=== PATIENT | female | born 1990 | race Caucasian/White ===

== ENCOUNTER 2017-02-16 10:15 | Emergency (ER) | payer MEDICAID ==
[2017-02-16 10:16] VITALS: BMI 30.8
--- NOTE | 2017-02-16 10:55 | ED PDOC ---
HPI: Abdomen Time Seen by Provider: 02/16/17 10:28 Chief Complaint (Nursing): Abdominal Pain Chief Complaint (Provider): Pelvic cramping, spotting History Per: Patient History/Exam Limitations: no limitations Onset/Duration Of Symptoms: Days Current Symptoms Are (Timing): Still Present Location Of Pain/Discomfort: Suprapubic Quality Of Discomfort: Cramping Associated Symptoms: Nausea, Loss Of Appetite. denies: Fever, Chills, Vomiting Exacerbating Factors: None Additional Complaint(s): Pt with one previous . Pt reports LMP 01/22/17. No test at home. PT reports cramping x 3 days. Pt states her menses was 2 days long and she had light bleeding last week. Pain cramping and central. Pt smokes. Past Medical History Reviewed: Historical Data, Nursing Documentation, Vital Signs Vital Signs: Last Vital Signs Temp 98.9 F 02/16/17 10:37 Pulse 75 02/16/17 10:37 Resp 16 02/16/17 10:37 BP 112/63 02/16/17 10:37 Pulse Ox 99 02/16/17 10:57 - Medical History PMH: Asthma - Surgical History Surgical History: No Surg Hx - Family History Family History: States: Unknown Family Hx - Living Arrangements Living Arrangements: With Family - Social History Current smoker - smoking cessation education provided: Yes Alcohol: Occasional - Immunization History Hx Tetanus Toxoid Vaccination: No Hx Influenza Vaccination: No Hx Pneumococcal Vaccination: No - Home Medications Home Medications: Ambulatory Orders Medication Instructions Recorded Naproxen [Naprosyn] 1 tab PO BID PRN #25 tab 08/31/15 - Allergies Allergies/Adverse Reactions: Allergies Allergy/AdvReac Type Severity Reaction Status Date / Time No Known Allergies Allergy Verified 08/31/15 13:40 Review of Systems ROS Statement: Except As Marked, All Systems Reviewed And Found Negative Constitutional: Negative for: Fever, Chills Cardiovascular: Negative for: Chest Pain Respiratory: Negative for: Cough, Shortness of Breath Gastrointestinal: Positive for: Nausea, Abdominal Pain Physical Exam - Reviewed Nursing Documentation Reviewed: Yes Vital Signs Reviewed: Yes - Physical Exam Appears: Positive for: Well, Non-toxic, No Acute Distress Head Exam: Positive for: ATRAUMATIC, NORMAL INSPECTION, NORMOCEPHALIC Skin: Positive for: Normal Color, Warm, DRY Eye Exam: Positive for: Normal appearance ENT: Positive for: Normal ENT Inspection Neck: Positive for: Normal, Painless ROM Cardiovascular/Chest: Positive for: Regular Rate, Rhythm Respiratory: Positive for: Normal Breath Sounds. Negative for: Accessory Muscle Use, Respiratory Distress Gastrointestinal/Abdominal: Positive for: Normal Exam, Bowel Sounds, Soft. Negative for: Tenderness Back: Positive for: Normal Inspection Extremity: Positive for: Normal ROM Neurologic/Psych: Positive for: Alert, Oriented - Laboratory Results Result Diagrams: 02/16/17 11:06 02/16/17 11:00 - ECG O2 Sat by Pulse Oximetry: 99 Medical Decision Making Medical Decision Making: (+) . Labs and US ordered. No IUP confirmed on US. Discussed f/u in 2-3 days for repeat beta-hCg Disposition - Clinical Impression Clinical Impression: - Patient ED Disposition Is Patient to be Admitted: No - Disposition Referrals: [facility] [Outside] Disposition: Routine/Home Disposition Time: 10:55 Condition: GOOD Additional Instructions: Follow-up with [facility] for repeat labs in 2-3 days Instructions: How to Stop Smoking (ED), Secondhand Smoke Exposure in Children ( ED)
[2017-02-16] MEDS ORDERED: Lactated Ringer's 1,000 ML IV SCH (11:00)
[2017-02-16 11:23] LABS: BASO % 0.7 % (0.0-2.0); EOS # 0.1 K/uL (0.0-0.7); EOS % 1.1 % (0.0-4.0); HEMATOCRIT 37.1 % (34.0-47.0); LYMPH # 1.8 K/uL (1.0-4.3); LYMPH % 27.6 % (20.0-40.0); MEAN CELL VOLUME 84.5 fl (81.0-99.0); MEAN CORPUSCULAR HEMOGLOBIN 27.4 pg (27.0-31.0); MEAN CORPUSCULAR HGB CONC 32.4 g/dL (33.0-37.0); MEAN PLATELET VOLUME 9.5 fl (7.2-11.7); MONO # 0.4 K/uL (0.0-0.8); MONO % 6.1 % (0.0-10.0); NEUT # 4.3 K/uL (1.8-7.0); NEUT % 64.5 % (50.0-75.0); NRBC % 0.1 % (0.0-0.0); WHITE BLOOD COUNT 6.7 K/uL (4.8-10.8)
[2017-02-16 11:40] LABS: ALB/GLOB RATIO 1.4 (1.0-2.1); ALKALINE PHOSPHATASE 42 U/L (38-126); ALT/SGPT 30 U/L (9-52); AST/SGOT 23 U/L (14-36); BILIRUBIN,TOTAL 0.5 mg/dl (0.2-1.3); BLOOD UREA NITROGEN 12 mg/dl (7-17); CALCIUM 9.6 mg/dL (8.4-10.2); CARBON DIOXIDE 27 mmol/L (22-30); CHLORIDE 103 mmol/L (98-107); GFR AFRICAN-AMERICAN > 60; GLUCOSE,RANDOM 67 mg/dL (65-105); POTASSIUM 4.1 MMOL/L (3.6-5.0); SODIUM 139 mmol/l (132-148); TOTAL PROTEIN 7.7 G/DL (6.3-8.2)
[2017-02-16 14:21] VITALS: BP 116/75; PULSE 77; RESP 14; TEMP 97.9; O2SAT 100
--- NOTE | 2017-02-16 15:00 | US ---
HISTORY: Pelvic pain. Spotting x4 weeks COMPARISON: No prior study available comparison TECHNIQUE: Transabdominal transvaginal sonographic evaluation of the pelvis performed. FINDINGS: The uterus is anteverted measuring approximately 6.7 x 4.7 x 4.4 cm. Cervix is closed measuring 3.6 cm. There is a very tiny on anechoic focus within the endometrium that measures 3.6 on mm that is nonspecific however could represent an early gestational sac. No yolk sac pole on delineated. There is free fluid seen in the pelvis. Left ovary measures 3.7 x 3.8 x 2.4 cm. There appears to be a complex cystic structure in the left adnexal of that measures approximately 1.5 x 1.3 x 1.2 cm and exhibits a peripheral rim of increased on blood flow (questionable ring of fire sign). There is also a more simple appearing cyst adjacent measuring 1.6 x 2.1 x 1.9 cm. Free fluid is also present. Ectopic must be considered until proven otherwise. Note that these findings were discussed with ER HARSH Self at approximately 2:40 p.m. with written down and read back verification. Right ovary measures 2.5 x 2.2 x 1.1 cm. Impression: Findings suggestive of left ectopic . Clinical correlation recommended. Emergency room staff aware.
== END 2017-02-16 14:20 | disposition home or self-care (01) ==
LOC: H.ER 10:15
DX: O26.891 Other specified pregnancy related conditions, first trimester (principal)
CPT/HCPCS: 76817; 80053; 81025; 84702; 85025; 86850; 86900; 99284; J7120

== ENCOUNTER 2017-03-09 13:12 | Emergency (ER) | payer MEDICAID ==
[2017-03-09 13:12] VITALS: BMI 30.8
[2017-03-09 13:20] VITALS: BP 112/64; PULSE 78; RESP 18; TEMP 97.7; O2SAT 84
--- NOTE | 2017-03-09 13:45 | ED PDOC ---
HPI: Female Pain Time Seen by Provider: 03/09/17 13:25 Chief Complaint (Nursing): Abdominal Pain History Per: Patient Onset/Duration Of Symptoms: Days (2) Current Symptoms Are (Timing): Intermittent Episodes Severity: Mild Pain Scale Rating Of: 1 Quality Of Discomfort: Cramping Additional Complaint(s): Lower abd cramping assoc with vaginal spotting x 2 days Abnormal Vaginal Bleeding: Yes Past Medical History Vital Signs: Last Vital Signs Temp 97.7 F 03/09/17 13:15 Pulse 78 03/09/17 13:15 Resp 18 03/09/17 13:15 BP 112/64 03/09/17 13:15 Pulse Ox 84 L 03/09/17 13:15 - Medical History PMH: Asthma - Family History Family History: States: Unknown Family Hx - Immunization History Hx Tetanus Toxoid Vaccination: No Hx Influenza Vaccination: No Hx Pneumococcal Vaccination: No - Home Medications Home Medications: Ambulatory Orders Medication Instructions Recorded Naproxen [Naprosyn] 1 tab PO BID PRN #25 tab 08/31/15 - Allergies Allergies/Adverse Reactions: Allergies Allergy/AdvReac Type Severity Reaction Status Date / Time No Known Allergies Allergy Verified 08/31/15 13:40 Review of Systems Constitutional: Negative for: Fever Gastrointestinal: Positive for: Abdominal Pain Genitourinary Female: Positive for: Vaginal Bleeding Musculoskeletal: Positive for: Back Pain Physical Exam - Physical Exam Appears: Positive for: Non-toxic, No Acute Distress Skin: Positive for: Normal Color, Warm, DRY Gastrointestinal/Abdominal: Positive for: Bowel Sounds, Soft. Negative for: Tenderness Pelvic Exam: Positive for: External Exam Normal. Negative for: Active Bleeding , Mass, Tender Adnexa, Tender Uterus - Laboratory Results Result Diagrams: 03/09/17 13:48 - ECG O2 Sat by Pulse Oximetry: 84 Disposition - Clinical Impression Clinical Impression: Threatened miscarriage - Patient ED Disposition Is Patient to be Admitted: No Counseled Patient/Family Regarding: Studies Performed, Diagnosis, Need For Followup, Rx Given - Disposition Referrals: [facility] [Outside] Disposition: Routine/Home Disposition Time: 15:31 Condition: FAIR Instructions: Threatened Miscarriage (ED) Forms: [employer] (Colombian)
[2017-03-09 14:02] LABS: BASO % 0.4 % (0.0-2.0); EOS # 0.1 K/uL (0.0-0.7); EOS % 0.7 % (0.0-4.0); HEMATOCRIT 36.3 % (34.0-47.0); LYMPH # 1.7 K/uL (1.0-4.3); LYMPH % 20.2 % (20.0-40.0); MEAN CELL VOLUME 83.8 fl (81.0-99.0); MEAN CORPUSCULAR HEMOGLOBIN 27.1 pg (27.0-31.0); MEAN CORPUSCULAR HGB CONC 32.4 g/dL (33.0-37.0); MEAN PLATELET VOLUME 9.7 fl (7.2-11.7); MONO # 0.4 K/uL (0.0-0.8); MONO % 5.3 % (0.0-10.0); NEUT # 6.2 K/uL (1.8-7.0); NEUT % 73.4 % (50.0-75.0); NRBC % 0.1 % (0.0-0.0); RED CELL DISTRIBUTION WIDTH 13.7 % (11.5-14.5); WHITE BLOOD COUNT 8.4 K/uL (4.8-10.8)
--- NOTE | 2017-03-09 15:59 | US ---
HISTORY: r/o ectopic COMPARISON: 02/16/2017. TECHNIQUE: Standard protocol for this study/examination. FINDINGS: LMP: 01/17/2017 Prior examinations from the current : 02/16/2017 TECHNIQUE: Real-time 2D imaging, duplex and color Doppler. FINDINGS: Cardiac activity: Present Rate: 144 BPM Measurements: Arpin rump length: 1.41 cm Gestational age based on CRL 7 weeks 5 days Gestational age based on gestational sac measurement 7 weeks 5 days Gestational age derived from LMP: 7 weeks 2 days GILMER based on LMP: 10/24/2017. GILMER based on biometry: 10/21/2017. Gestational concordance documented Yolk sac identified Uterus: Unremarkable. No Cervical abnormalities: Negative examination for cervical dilatation or effacement. Subchorionic hemorrhage: None ADNEXA: Right: 1.6 x 1.9 x 2.4 cm. Normal Doppler arterial waveform documented. Left: 2.6 x 2.8 x 3.6 cm. Simple cyst 2.5 x 2.8 cm Normal Doppler arterial waveform documented Fluid in the cul-de-sac: OTHER FINDINGS: None. IMPRESSION: Seven weeks 5 days live intrauterine gestation. Gestational concordance documented.
== END 2017-03-09 16:07 | disposition home or self-care (01) ==
LOC: H.ER 13:12
DX: O20.0 Threatened abortion (principal)

== ENCOUNTER 2017-04-18 12:02 | Emergency (ER) | payer MEDICAID ==
[2017-04-18 12:03] VITALS: BMI 30.8
[2017-04-18 12:22] VITALS: BP 121/59; PULSE 71; RESP 16; TEMP 99; O2SAT 100
--- NOTE | 2017-04-18 12:32 | ED PDOC ---
HPI: General Adult Time Seen by Provider: 04/18/17 12:31 Chief Complaint (Nursing): Abdominal Pain Chief Complaint (Provider): abd pain History Per: Patient Additional Complaint(s): 27 year old female presents to emergency department for evaluation of abdominal cramping and headache ongoing for 2 months. Patient is but she is not sure how far along she is. Her last period was 01/17/2017. Patient has been getting intermittent headaches for the past couple of months that are relieved by Tylenol. Patient has not no care up to this point. She denies vaginal bleeding, denies fever or chills. No nausea or vomiting. Past Medical History Reviewed: Historical Data, Nursing Documentation, Vital Signs Vital Signs: Last Vital Signs Temp 99.0 F 04/18/17 12:18 Pulse 71 04/18/17 12:18 Resp 16 04/18/17 12:18 BP 121/59 L 04/18/17 12:18 Pulse Ox 100 04/18/17 13:33 - Medical History PMH: Asthma Other PMH: - Surgical History Surgical History: (x 1) - Family History Family History: States: No Known Family Hx - Living Arrangements Living Arrangements: With Family - Social History Current smoker - smoking cessation education provided: No Alcohol: None Drugs: Denies - Home Medications Home Medications: Ambulatory Orders Medication Instructions Recorded Naproxen [Naprosyn] 1 tab PO BID PRN #25 tab 08/31/15 - Allergies Allergies/Adverse Reactions: Allergies Allergy/AdvReac Type Severity Reaction Status Date / Time No Known Allergies Allergy Verified 08/31/15 13:40 Review of Systems ROS Statement: Except As Marked, All Systems Reviewed And Found Negative Gastrointestinal: Positive for: Abdominal Pain. Negative for: Nausea, Vomiting , Diarrhea, Constipation Genitourinary Female: Negative for: Dysuria, Frequency, Incontinence, Vaginal Discharge, Vaginal Bleeding Neurological: Positive for: Headache. Negative for: Dizziness Physical Exam - Reviewed Nursing Documentation Reviewed: Yes Vital Signs Reviewed: Yes - Physical Exam Appears: Positive for: Well, Non-toxic, No Acute Distress Skin: Negative for: Rash Eye Exam: Positive for: Normal appearance Cardiovascular/Chest: Positive for: Regular Rate, Rhythm Respiratory: Positive for: Normal Breath Sounds Gastrointestinal/Abdominal: Positive for: Other (Gravid nontender abdomen) Back: Negative for: L CVA Tenderness, R CVA Tenderness Extremity: Negative for: Pedal Edema Neurologic/Psych: Positive for: Alert, Oriented - Laboratory Results Result Diagrams: 04/18/17 13:07 04/18/17 13:07 Urine POC: Positive Urine dip results: Negative for: Leukocyte Esterase, Blood, Nitrate, Ketones, Glucose, Bilirubin, Protein - ECG O2 Sat by Pulse Oximetry: 100 Pulse Ox Interpretation: Normal - Other Rad OB US X-Ray: Read By Radiologist X-Ray Interpretation: see below Medical Decision Making Medical Decision Makin27 year old female with abdominal pain and headache. Plan: CBC CMP Beta quant Urine dip and test OB US UA PO tylenol IVF US: IMPRESSION: Single live intrauterine gestation of approximately 13 weeks 2 days gestational age. No gross abnormality identified. Cervix closed. Patient is aware of all diagnostic testing results, all questions answered. Prescription given for vitamins. Patient was instructed to drink plenty of fluids and continue Tylenol as needed for pain. She was referred to women's clinic for follow-up. Patient states that headache is now resolved after Tylenol dose given in ED. Disposition - Clinical Impression Clinical Impression: Abdominal pain during , Headache - Patient ED Disposition Is Patient to be Admitted: No Counseled Patient/Family Regarding: Studies Performed, Diagnosis, Need For Followup, Rx Given - Disposition Referrals: [facility] [Outside] Disposition: Routine/Home Disposition Time: 14:18 Condition: STABLE Additional Instructions: Take vitamins as directed. Tylenol as needed for headache. Plenty of fluids. Follow-up with women's clinic. Instructions: Abdominal Pain in (ED), General Headache (ED) Forms: [employer] (B[place]raini) Results - Lab Results Lab Results: 04/18/17 04/18/17 04/18/17 13:07 13:07 13:07 WBC 7.0 RBC 3.83 Hgb 10.5 L Hct 32.7 L MCV 85.2 MCH 27.5 MCHC 32.3 L RDW 14.6 H Plt Count 182 MPV 9.2 Neut % (Auto) 68.8 Lymph % (Auto) 23.2 [place] % (Auto) 5.5 Eos % (Auto) 1.9 Baso % (Auto) 0.6 Neut # 4.8 Lymph # 1.6 [place] # 0.4 Eos # 0.1 Baso # 0.0 Sodium 139 Potassium 3.9 Chloride 105 Carbon Dioxide 24 Anion Gap 14 BUN 8 Creatinine 0.6 L Est GFR ( Amer) > 60 Est GFR (Non-Af Amer) > 60 Random Glucose 73 Calcium 9.2 Total Bilirubin 0.1 L AST 19 ALT 21 Alkaline Phosphatase 38 Total Protein 7.4 Albumin 4.1 Globulin 3.3 Albumin/Globulin Ratio 1.3 Beta HCG, Quant Pending Urine Color Yellow Urine Clarity Clear Urine pH 6.0 Ur Specific [place] 1.017 Urine Protein Negative Urine Glucose (UA) Neg Urine Ketones Negative Urine Blood Negative Urine Nitrate Negative Urine Bilirubin Negative Urine Urobilinogen 0.2-1.0 Ur Leukocyte Esterase Neg Urine RBC (Auto) 1 Urine Microscopic WBC 1 Ur Squamous Epith Cells 2
[2017-04-18 13:15] LABS: BASO % 0.6 % (0.0-2.0); EOS # 0.1 K/uL (0.0-0.7); EOS % 1.9 % (0.0-4.0); HEMATOCRIT 32.7 % (34.0-47.0); LYMPH # 1.6 K/uL (1.0-4.3); LYMPH % 23.2 % (20.0-40.0); MEAN CELL VOLUME 85.2 fl (81.0-99.0); MEAN CORPUSCULAR HEMOGLOBIN 27.5 pg (27.0-31.0); MEAN CORPUSCULAR HGB CONC 32.3 g/dL (33.0-37.0); MEAN PLATELET VOLUME 9.2 fl (7.2-11.7); MONO # 0.4 K/uL (0.0-0.8); MONO % 5.5 % (0.0-10.0); NEUT # 4.8 K/uL (1.8-7.0); NEUT % 68.8 % (50.0-75.0); RED CELL DISTRIBUTION WIDTH 14.6 % (11.5-14.5)
[2017-04-18 13:22] LABS: RBC URINE 1 /hpf (0-3); URINE BILIRUBIN NEGATIVE (NEGATIVE); URINE BLOOD NEGATIVE (NEGATIVE); URINE COLOR YELLOW (YELLOW); URINE GLUCOSE (UA) NEG (Normal); URINE KETONE NEGATIVE (NEGATIVE); URINE LEUKOCYTE ESTERASE NEG Leu/uL (Negative); URINE PROTEIN NEGATIVE (NEGATIVE); URINE UROBILINOGEN 0.2-1.0 mg/dL (0.2-1.0); WBC URINE 1 /hpf (0-5)
[2017-04-18] MEDS ORDERED: Sodium Chloride 0.9% 1,000 ML IV STA (13:31)
[2017-04-18 13:38] LABS: ALB/GLOB RATIO 1.3 (1.0-2.1); ALKALINE PHOSPHATASE 38 U/L (38-126); ALT/SGPT 21 U/L (9-52); AST/SGOT 19 U/L (14-36); BILIRUBIN,TOTAL 0.1 mg/dl (0.2-1.3); BLOOD UREA NITROGEN 8 mg/dl (7-17); CALCIUM 9.2 mg/dL (8.4-10.2); CARBON DIOXIDE 24 mmol/L (22-30); CHLORIDE 105 mmol/L (98-107); GFR AFRICAN-AMERICAN > 60; GLUCOSE,RANDOM 73 mg/dL (65-105); POTASSIUM 3.9 MMOL/L (3.6-5.0); SODIUM 139 mmol/l (132-148); TOTAL PROTEIN 7.4 G/DL (6.3-8.2)
--- NOTE | 2017-04-18 14:13 | US ---
PROCEDURE: OB Pelvic Ultrasound HISTORY: , unknown weeks, cramping COMPARISON: 03/09/2017 FINDINGS: UTERUS: Single Live intrauterine gestation. CRL equivalent to 13 weeks 2 days gestatioin Gestational sac diameter is out of range for age determination. Unable to perform formal biometry due to early gestational age. age (Ultrasound estimated): 13 weeks 2 days Date of delivery (Ultrasound estimated) : 10/22/2017. There has been appropriate interval growth since the prior ultrasound examination of 03/09/2017. Heart rate: 152 bpm. Lexus-gestational hemorrhage: None. Uterus measures 11.5 x 8.3 x 8.6 cm. No mass CERVIX: Cervix closed and measures 4.6 cm in length. RIGHT OVARY: Not identified LEFT OVARY: Not identified FREE FLUID: None. OTHER FINDINGS: None. IMPRESSION: Single live intrauterine gestation of approximately 13 weeks 2 days gestational age. No gross abnormality identified. Cervix closed.
== END 2017-04-18 14:32 | disposition home or self-care (01) ==
LOC: H.ER 12:02
DX: O26.899 Other specified pregnancy related conditions, unspecified trimester (principal); Z3A.13 13 weeks gestation of pregnancy
CPT/HCPCS: 76817; 80053; 81003; 81025; 84702; 85025; 99283; J7040

== ENCOUNTER 2017-07-25 15:20 | Emergency (ER) | payer MEDICAID ==
[2017-07-25 15:59] VITALS: BMI 28.9
[2017-07-25 17:06] LABS: SQUAMOUS EPITHIAL 2 /hpf (0-5); URINE BACTERIA RARE (<OCC); URINE BILIRUBIN NEGATIVE (NEGATIVE); URINE BLOOD NEGATIVE (NEGATIVE); URINE CLARITY CLOUDY (Clear); URINE COLOR YELLOW (YELLOW); URINE GLUCOSE (UA) NEG (Normal); URINE LEUKOCYTE ESTERASE NEG Leu/uL (Negative); URINE NITRATE NEGATIVE (NEGATIVE); URINE PROTEIN NEGATIVE (NEGATIVE); URINE UROBILINOGEN 0.2-1.0 mg/dL (0.2-1.0)
[2017-07-25 22:46] VITALS: BP 117/57; PULSE 89
== END 2017-07-25 18:45 | disposition home or self-care (01) ==
LOC: H.EROB2 15:20
DX: O47.02 False labor before 37 completed weeks of gestation, second trimester (principal); Z3A.27 27 weeks gestation of pregnancy; O34.62 Maternal care for abnormality of vagina, second trimester; N89.8 Other specified noninflammatory disorders of vagina

== ENCOUNTER 2017-10-15 11:21 | Inpatient (IN) | payer MEDICAID ==
[2017-10-15 12:09] VITALS: BMI 33.2
[2017-10-15] MEDS ORDERED: ceFAZolin 1 GM in Sodium Chloride 0.9% 100 ML IVPB ONE (12:24)
[2017-10-15] MEDS ORDERED: Oxytocin 30 units/LR 500ML 30 U/500 ML BAG IV ONE (12:29)
[2017-10-15 13:11] LABS: BASO # 0.1 K/uL (0.0-0.2); BASO % 0.8 % (0.0-2.0); EOS # 0.1 K/uL (0.0-0.7); EOS % 0.8 % (0.0-4.0); HEMOGLOBIN 11.5 g/dL (12.0-16.0); LYMPH # 1.7 K/uL (1.0-4.3); LYMPH % 18.5 % (20.0-40.0); MEAN CORPUSCULAR HEMOGLOBIN 28.7 pg (27.0-31.0); MEAN CORPUSCULAR HGB CONC 33.4 g/dL (33.0-37.0); MEAN PLATELET VOLUME 11.2 fl (7.2-11.7); MONO # 0.6 K/uL (0.0-0.8); MONO % 6.2 % (0.0-10.0); NEUT # 6.6 K/uL (1.8-7.0); NEUT % 73.7 % (50.0-75.0); NRBC % 0.1 % (0.0-0.0); RBC 4.01 Mil/uL (3.80-5.20); RED CELL DISTRIBUTION WIDTH 14.1 % (11.5-14.5)
[2017-10-15] MEDS: Lactated Ringer's 1,000 ML IV SCH ×2 (13:30→15:00)
[2017-10-15] MEDS ORDERED: ceFAZolin 2 GM in Sodium Chloride 0.9% 100 ML IVPB ONE (13:32)
[2017-10-15 15:04] VITALS: RESP 18
--- NOTE | 2017-10-15 16:58 | OBADHP ---
Datetime: 10/15/2017 13:51 Extremities - PN: Normal Abdomen - PN: Normal Back - PN: Normal Lungs - PN: Normal Heart - PN: Normal Thyroid - PN: Normal Neurologic - PN: Normal HEENT - PN: Normal General - PN: Normal FHR - Baseline A Provider: 140 Gestation - Est Wks by US: 39.5 Vital Signs Provider: Reviewed; Within Normal Limits IP Chief Complaint: Uterine contractions NICHD Variability Prov Fetus A: Moderate 6-25bpm NICHD Decel Fetus A IP Provider: None Genitourinary Exam: Normal EGA AdmitDate IP: 39.5 Datetime: 10/15/2017 12:44 Admit Comment, IP Provider: 27 yo 39.5GA IUP is admitted to [facility] with complaints of contraction s every 10-15 minutes for previous 9 hours. States continued +FM but denies vaginal bleeding, loss of fluid, or loss of mucous plug. Denies taking any medication other than vitamins. Last meal was this morning. NKDA Meds: PMHx: Denies PSHx: C/S 2014 ROS: Denies fevers/chills, n/v/d, chest pain, SOB, dyspnea, cough, hematuria, dysuria, lower leg c ramping, or calf tenderness. PERRL, EOMI RRR, S1 S2 CTA b/l No abd tenderness, prev incision well healed No calf tenderness No lower extremity edema 27 yo 39.5GA IUP presents to [facility] ED with complaints of contractions -Admitted for repeat C section -IVF Hydration -NPO -C section protocol initiated Tj, PGY3 [facility]...Personally, I examined this patinet and agree with above note. Case discu ssed with PMD Dr Graves...will admit for IUP 39w/previous C/S x 1 malpresentation (sono done in L_D) Informed consent obtained. Presentation-Admit: Breech IP Hx Assessment: The History has been Reviewed and is Current NICHD Accel Fetus A IP Provider: [id number] FHR Category Provider Fetus A: Category I IP Adm Impression: Term, intrauterine ; No Active Labor; Intact Membranes IP Admit Plan: Admit to unit; Initiate Section protocol Datetime: 07/25/2017 17:30 Pelvic Type - PN: Adequate Breast - PN: Not Done Dilatation, Provider: 0 DTRs - PN: Not Done
[2017-10-15] MEDS ORDERED: Morphine 1 mg/ml preservative-free Inj(Duramorph) ONE (17:54)
[2017-10-15] MEDS ORDERED: Phenylephrine 10 mg/ml Inj ONE (17:58)
[2017-10-15] MEDS ORDERED: ePHEDrine 50 mg/ml Inj ONE (17:58)
[2017-10-15] MEDS ORDERED: Lactated Ringer's 1,000 ML IV SCH ×2 (19:00→22:24)
[2017-10-15] MEDS ORDERED: Oxycodone/Acetaminophen 5/325 mg Tab PO PRN ×3 (19:00→19:47)
--- NOTE | 2017-10-15 19:11 | OBADHP ---
Datetime: 10/15/2017 13:51 Admit Comment, IP Provider: 27 yo 39.5GA IUP is admitted to [facility] with complaints of contraction s every 10-15 minutes for previous 9 hours. Had previously been scheduled for repeat c/s on 10/24, but due to contractions was instructed by PMD to go to ED. States continued +FM but denies vaginal bleed ing, loss of fluid, or loss of mucous plug. Denies taking any medication other than vitamins . Last meal was this morning. Pt stated she did NOT want BTL. NKDA Meds: Prenatals PMHx: Denies asthma, denies any other history. PSHx: Primary C section 3 years ago ROS: Denies fevers/chills, n/v/d, chest pain, SOB, dyspnea, cough, hematuria, dysuria, lower leg c ramping, or calf tenderness. AxO x3 PERRL, EOMI RRR, S1 S2 CTA b/l No abd tenderness, prev incision well healed No calf tenderness No lower extremity edema 27 yo 39.5GA IUP presents to [facility] ED with complaints of contractions -Admitted for repeat C section -IVF Hydration -NPO -C section protocol initiated Tj PGY3 Addendum: Prenantal chart rev'd EDC 10/24 - IUP at 38+w; early labor SVE 1-2cm declined EGA AdmitDate IP: 39.5
[2017-10-15] MEDS ORDERED: DiphenhydrAMINE 50 mg/ml Inj IVP PRN (19:47)
[2017-10-15] MEDS ORDERED: Simethicone 80 mg Chewtab PO SCH (22:00)
[2017-10-15] MEDS ORDERED: DiphenhydrAMINE 50 mg/ml Inj IVP STA (22:34)
--- NOTE | 2017-10-15 22:45 | OBDS ---
DELIVERY PERSONNEL Delivery Doctor: Desmond Mejias DO Pre Wave Assembler: Linda Cullen RN Anesthesiologist: Rosemarie Hawkins MD Resident: Dr Hughes MATERNAL INFORMATION Delivery Anesthesia: Spinal Medications in Delivery: Ancef 2G Estimated Blood Loss (ml): 800 Placenta Cultured: No Maternal Complications: None RN Comments: patient delivered viable boy via R C/S was examined by Dr Schultz on warmer, apgars were 9 and 9. infant was placed skin to skin. patient remained stable throughout surgery. infant went to nursery, patient transferred to labor and delivery for recovery. Provider Comments: -Pre Op Dx IUP at 38+w early labor; previous C/S; declined Post Op Dx : Same Procedure: Repeat LTCS via Pfannenstieil incision Surgeon Dr Randell Parry / Dr Hughes PGY1 Anest: Dr Hawkins Anest: spinal Findings: -live infant male delivered from cephalic presentation -Clear AF -Placenta delivreed intact manually -Ovaries and tubes WNL grossly - She remained stable -All equipment sponges and needles accounted for EBL 800cc LABOR SUMMARY EDC: 10/17/2017 00:00 No. Babies in Womb: 1 STAGES OF LABOR Stage 3 hrs: 0 Stage 3 min: 1 CSECTION DELIVERY Primary Indication: Other Other Primary Indication: C/S x1 declined /early labor CSection Urgency: Non Elective CSection Incidence: Repeat Labor: Labor Elective: Nonelective CSection Incision: Lower Uterine Transverse Uterine Closure: Double-layer closure BABY A INFORMATION Infant Delivery Date/Time: 10/15/2017 18:24 Method of Delivery: Vaginal Born in Route : No : N/A Forceps: N/A Vacuum Extraction: N/A Shoulder Dystocia : No SHOULDER DYSTOCIA BABY A Infant Delivery Date/Time: 10/15/2017 18:24 PRESENTATION/POSITION BABY A Presentation: Cephalic PLACENTA INFORMATION BABY A Placenta Delivery Time : 10/15/2017 18:25 Placenta Method of Delivery: Manual Removal Placenta Status: Delivered SCORES BABY A Heart Rate 1 min: >100 bpm Resp Effort 1 min: Good Cry Reflex Irritability 1 min: Cough or Sneeze or Pulls Away Muscle Tone 1 min: Active Motion Color 1 min: Body [place], Extremities Blue Resuscitation Effort 1 min: N/A SCORE 1 MIN: 9 Heart Rate 5 min: >100 bpm Resp Effort 5 min: Good Cry Reflex Irritability 5 min: Cough or Sneeze or Pulls Away Muscle Tone 5 min: Active Motion Color 5 min: Body [place], Extremities Blue Resuscitation Effort 5 min: N/A SCORE 5 MIN: 9 INFORMATION BABY A Gestational Age at Delivery: 39.5 Gestational Status: Term Infant Outcome : Liveborn Condition : Stable Infant Sex: Male WEIGHT/LENGTH BABY A Birthweight (gms): 3270 Weight (lb): 7 Infant Weight (oz): 3 CORD INFORMATION BABY A No. Cord Vessels: 3 Nuchal Cord : N/A Cord Blood Taken: Yes Infant Suction: Mouth
[2017-10-16] MEDS: Oxycodone/Acetaminophen 5/325 mg Tab PO PRN ×5 (01:57→20:04)
[2017-10-16 08:06] LABS: BASO % 0.5 % (0.0-2.0); EOS % 0.2 % (0.0-4.0); HEMOGLOBIN 10.5 g/dL (12.0-16.0); LYMPH # 1.2 K/uL (1.0-4.3); LYMPH % 13.3 % (20.0-40.0); MEAN CELL VOLUME 85.9 fl (81.0-99.0); MEAN CORPUSCULAR HEMOGLOBIN 28.2 pg (27.0-31.0); MEAN CORPUSCULAR HGB CONC 32.8 g/dL (33.0-37.0); MONO # 0.5 K/uL (0.0-0.8); NEUT # 7.3 K/uL (1.8-7.0); RBC 3.73 Mil/uL (3.80-5.20); RED CELL DISTRIBUTION WIDTH 13.9 % (11.5-14.5)
--- NOTE | 2017-10-16 10:23 | OBPPN ---
Datetime: 10/16/2017 06:31 PP Pain Prov: Within normal limits PP Nausea Prov: Denies PP Flatus Prov: No PP BM Prov: No PP Heart Prov: Normal PP Lungs Prov: Normal PP Abdomen/Uterus Prov: Normal PP Lochia Prov: Normal PP CVA Tenderness Prov: Normal PP Extremities Prov: Normal PP C/S Incision Prov: Normal PP Impression Prov: Normal progression PP Plan Prov: Continue present management PP Progress Note Prov: S: 27 y/o F, POD3, s/p repeat , POD1. Pt is seen and examined t his AM. No acute overnight events. Pt is endorsing mild to moderate pelvic. Patient was encouraged to ambulate and tolerating liquid PO. No too much bleeding. Pateint denies passing gas or BM. Will d/c Yates this morning . Denies chest pain, dyspnea, n/v, fever/chills, diarrhea, nausea/vomiting, and c assisted pain. O: VS: wnl, afebrile GEN: Awake, alert and baby by bedside. NAD HEENT: EOMI, moist mucosa. LUNGS: CTA B/L, no wheezing, rhonci, or rales CVS: RRR, S1,S2 no murmurs ABD: ND, +BS, soft abdomen, firm fundus @ umbilical level. Dressing is placed on incision site which is clean, dry and intact EXT: No edema, neg calf tenderness NEURO/PSYCHI: AAOx3, no grossly focal deficit, preserved affect and mood. Assessment/Plan: 27 y/o F, POD3, s/p repeat , POD1 on 10/15/17. Pt gave to a ba by boy. Pt remains afebrile, c/o mild pain, advance diet as tolerated and d/c yates, 600 UO. Doing we ll on POD1. -C/w regular diet as tolerated, D/c yates this morning and dressing change later in the day -OOB with caution SCDs for DVT prophylaxis -C/w Percocet 5/325 mg and Ibuprofen 600 mg for pain prn -C/w Colace 100mg PO BID PRN -Encourage and ambulating --- Rochelle Lynne, PGY-1 (Annotations: Data stored by CPN on behalf of user) IP PP Procedures: None Vital Signs Provider PP: Reviewed; Within Normal Limits
[2017-10-17] MEDS: Oxycodone/Acetaminophen 5/325 mg Tab PO PRN ×6 (00:11→23:18)
--- NOTE | 2017-10-17 10:56 | OBADHP ---
Datetime: 10/15/2017 12:44 Admit Comment, IP Provider: 27 yo 39.5GA IUP is admitted to [facility] with complaints of contraction s every 10-15 minutes for previous 9 hours. States continued +FM but denies vaginal bleeding, loss of fluid, or loss of mucous plug. Denies taking any medication other than vitamins. Last meal was this morning. NKDA Meds: PMHx: Denies PSHx: C/S 2014 ROS: Denies fevers/chills, n/v/d, chest pain, SOB, dyspnea, cough, hematuria, dysuria, lower leg c ramping, or calf tenderness. PERRL, EOMI RRR, S1 S2 CTA b/l No abd tenderness, prev incision well healed No calf tenderness No lower extremity edema 27 yo 39.5GA IUP presents to [facility] ED with complaints of contractions -Admitted for repeat C section -IVF Hydration -NPO -C section protocol initiated Tj, PGY3 [facility]...Personally, I examined this patinet and agree with above note. Case discu ssed with PMD Dr Graves...will admit for IUP 39w/previous C/S x 1 Declined Informed consent obta ined. Sono done by me 17:00 cephalic Presentation-Admit: Vertex IP Fetus A Comments: Sono done - 17:00pm - cephalic
[2017-10-18] MEDS: Oxycodone/Acetaminophen 5/325 mg Tab PO PRN (06:10)
[2017-10-18 17:49] VITALS: BP 112/65; PULSE 83; TEMP 97.1; O2SAT 99
== END 2017-10-18 11:45 | disposition home or self-care (01) | DRG 371 ==
LOC: H.EROB2 11:21 → H.EROB 11:32 → H.L&D 12:28 → H.EROB2 12:32 → H.OB/GYN 21:23
PROVIDERS: ADMIT Obstetrics & Gynecology; ATTEND Obstetrics & Gynecology
PROC: 10D00Z1 Extraction of Products of Conception, Low, Open Approach (ICD-10-PCS; principal; 2017-10-15)
PROC: 4A1HXCZ Monitoring of Products of Conception, Cardiac Rate, External Approach (ICD-10-PCS; 2017-10-15)
DX: O34.211 Maternal care for low transverse scar from previous cesarean delivery (principal); N85.8 Other specified noninflammatory disorders of uterus; Z3A.38 38 weeks gestation of pregnancy; Z37.0 Single live birth